=== PATIENT | male | born 1980 | race Caucasian/White ===

== ENCOUNTER 2022-10-14 08:57 | Emergency (ER) | payer BC, OTHER ==
[2022-10-14 09:06] VITALS: O2SAT 98
--- NOTE | 2022-10-14 09:28 | XRAY ---
Indication: Pain following fall. Comparison: None 3 view right ankle demonstrates mild anterolateral soft tissue swelling, tiny posterior heel spur, and tiny spur distal tibia anteriorly. No other bony, articular, or soft tissue abnormalities.
--- NOTE | 2022-10-14 10:15 | ERPHSYRPT ---
- History of Present Illness Source: patient Exam Limitations: no limitations Patient Subjective Stated Complaint: pt states "I rolled my right ankle at volleyball last night." Triage Nursing Assessment: Pt presented alert and oriented X 3, skin pwd. Pt ambulates with an upright steady gait, able to speak in clear full sentences pt right ankle swollen and tender. CSM X 4 Physician History: 42 yo wm w R ankle pain after twisting it playing volleyball last night. Pain is mild and worse w weight bearing. He denies other injuries at this time. Method of Injury: twisted Occurred: yesterday Quality: intermittent Severity of Pain-Max: moderate Severity of Pain-Current: mild Lower Extremities Pain: ankle: right Modifying Factors: Improves With: movement Associated Symptoms: none Allergies/Adverse Reactions: No Known Drug Allergies Allergy (Unverified 05/08/14 13:06) Home Medications: Multivit with Iron,Minerals [Multivitamins with Iron] 1 each PO DAILY 10/14/22 [History] Hx Tetanus, Diphtheria Vaccination/Date Given: No Hx Influenza Vaccination/Date Given: No Hx Pneumococcal Vaccination/Date Given: No Immunizations Up to Date: Yes Travel Risk - International Travel Have you traveled outside of the country in past 3 weeks: No - Coronavirus Screening Are you exhibiting any of the following symptoms?: No Close contact with a COVID-19 positive Pt in past 14-21 Days: No - Vaccine Status Have you recieved a Covid-19 vaccination: No - Review of Systems Constitutional: No Symptoms Eyes: No Symptoms Ears, Nose, & Throat: No Symptoms Respiratory: No Symptoms Cardiac: No Symptoms Abdominal/Gastrointestinal: No Symptoms Genitourinary Symptoms: No Symptoms Skin: No Symptoms Neurological: No Symptoms Psychological: No Symptoms Endocrine: No Symptoms Hematologic/Lymphatic: No Symptoms Immunological/Allergic: No Symptoms - Past Medical History Pertinent Past Medical History: Yes Psycho-Social History: Other Other Medical History: PTSD - Past Surgical History Past Surgical History: Yes Musculoskeletal: Orthopedic Surgery Other Surgical History: TONSILLECTOMY - Social History Smoking Status: Never smoker Exposure to second hand smoke: No Drug Use: none Patient Lives Alone: No - Nursing Vital Signs Nursing Vital Signs: Initial Vital Signs Temperature 97.3 F 10/14/22 09:02 Pulse Rate 93 H 10/14/22 09:02 Respiratory Rate 20 10/14/22 09:02 Blood Pressure 173/88 10/14/22 09:02 O2 Sat by Pulse Oximetry 98 10/14/22 09:02 Pain Scale Pain Intensity 5 Hypertensive - Physical Exam General Appearance: no apparent distress Eyes, Ears, Nose, Throat Exam: normal ENT inspection, TMs normal, pharynx normal, moist mucous membranes Neck Exam: normal inspection, non-tender, supple, full range of motion, No Brudzinski, No Kernig's, No meningismus Cardiovascular/Respiratory Exam: normal breath sounds, regular rate/rhythm, heart sounds normal Gastrointestinal/Abdominal Exam: non-tender, soft Back Exam: normal inspection, normal range of motion, No CVA tenderness Hips Exam: bilateral: non-tender, normal inspection, normal range of motion, no evidence of injury Legs Exam: bilateral leg: non-tender, normal inspection, normal range of motion, no evidence of injury Knees Exam: bilateral knee: non-tender, normal inspection, normal range of motion, no evidence of injury Ankle Exam: right ankle: soft tissue tenderness (R ankle-lateral malleolar edema/TTP laterally/pain w inversion/Good pedal pulse, distal sensation, and capillary return) Foot Exam: bilateral foot: non-tender, normal inspection, normal range of motion, no evidence of injury Neuro/Tendon Exam: normal sensation, normal motor functions, normal tendon functions, responds to pain, No motor deficit, No sensory deficit Mental Status Exam: alert, oriented x 3, cooperative Skin Exam: normal color, warm, dry SpO2 Interpretation: normal SpO2: 98 O2 Delivery: Room Air - Course Nursing assessment & vital signs reviewed: Yes - Radiology Exams Ankle X-ray Interpretation: Discussed w/ radiologist (R ankle no fx per rad/Rad later called and stated that pt had base of 5th metatarsal fx) Ordered Tests: Active Orders 24 hr Category Date Time Status Ismael Bandage Application -[facility] STAT Care 10/14/22 10:07 Completed Crutches STAT Care 10/14/22 10:08 Completed Splint STAT Care 10/14/22 10:08 Completed Splint STAT Care 10/14/22 10:55 Completed ANKLE (3 VIEWS) Stat Exams 10/14/22 09:22 Completed - Progress Progress Note: 10/14/22 10:14 Nurses note and vital signs reviewed No food or housing insecurities noted Pt refused pain meds Ismael wrap/air splint/crutches per nursing/NVI Rad later called and stated that pt has base of 5th metatarsal fx Air-splint removed and walking boot placed per nursing/NVI 10/14/22 10:53 10/14/22 14:06 Counseled pt/family regarding: diagnosis, need for follow-up, rad results - Departure Departure Disposition: Home Clinical Impression: Right ankle sprain, Fracture of 5th metatarsal Condition: Stable Critical Care Time: No Referrals: [facility] [Primary Care Provider] - Follow up/PCP as directed ORTHO - ЮЛ[facility] T[facility] NP [NON-STAFF PHY W/O PRIVILEGES] - Follow up/PCP as directed Instructions: Ankle Sprain (DC), Foot Fracture (DC) Additional Instructions: Motrin/Tylenol for pain No weight bearing Ice for 12-24 hours Follow up in orthopedic clinic M-Fr 8-10 or with the [place]
[2022-10-14 10:45] VITALS: BP 168/70; PULSE 80
== END 2022-10-14 11:11 | disposition home or self-care (01) ==
LOC: ED 08:57
DX: S93.401A Sprain of unspecified ligament of right ankle, initial encounter (principal); S92.351A Displaced fracture of fifth metatarsal bone, right foot, initial encounter for closed fracture; X50.0XXA Overexertion from strenuous movement or load, initial encounter; Y93.68 Activity, volleyball (beach) (court); Z28.310 Unvaccinated for COVID-19
CPT/HCPCS: 73610; 99283; L4386